=== PATIENT | male | born 1980 | race Caucasian/White ===

== ENCOUNTER 2020-07-11 12:38 | Emergency (ER) | payer OTHER ==
[~2020-07-11] VITALS: Ht 175.3 cm; Wt 106.6 kg
--- NOTE | 2020-07-12 16:28 | EKG ---
[facility] [address] [place], [place] [address] Signed Normal sinus rhythm Left axis deviation Abnormal ECG No previous ECGs available Confirmed by JET RODRIGUEZ DO ([id number]) on 07/12/2020 4:28:17 PM Electronically Signed By: JET RODRIGUEZ DO 07/12/20 1628 PATIENT NAME: LADI SOTO Electrocardiogram DATE OF : 82 PHYSICIAN: JET RODRIGUEZ DO REPORT #: [id number] REPORT IS CONFIDENTIAL AND NOT TO BE RELEASED WITHOUT AUTHORIZATION
== END 2020-07-11 14:50 | disposition home or self-care (01) ==
LOC: ED 12:38
DX: R07.9 Chest pain, unspecified (principal)
CPT/HCPCS: 71046; 80053; 83735; 84484; 85025; 93005; 93010; 99285-25